=== PATIENT | male | born 1960 | race Caucasian/White ===

== ENCOUNTER 2018-09-03 06:46 | Day surgery (SDC) ==
[2018-09-03] MEDS ORDERED: LIDOCAINE 1% 20 ML MDV ID ONE (07:15)
[2018-09-03 07:22] VITALS: TEMP 97
[2018-09-03] MEDS ORDERED: VERSED ONE (08:05)
[2018-09-03] MEDS ORDERED: DIPRIVAN 20 ML VIAL IVP ONE (08:05)
--- NOTE | 2018-09-03 14:34 | OP ---
INDICATIONS FOR PROCEDURE: 57 year old gentleman presents for a screening exam. He has a family history of colon cancer involving his father in the 50's. The patient has a remote history of colon polyps. Unknown histology. His last colonoscopy was 5 years ago and unremarkable. MEDICATIONS: SEE ANESTHESIA NOTES. PROCEDURE: COLONOSCOPY. REPORT: The risks, benefits, alternatives and limitations were discussed in detail with the patient. Informed consent was obtained. After adequate sedation was achieved, a digital rectal exam revealed good tone, no masses. The colonoscope was introduced into the rectum and advanced under direct visual guidance to the cecum. The cecum was identified by the appendiceal orifice and IC valve. I then slowly withdrew the scope in circumferential manner and examined the mucosa quite carefully. I looked on the proximal and distal sides of folds and flexure as best as possible. I was able to retroflex the scope in the right colon and the left colon to increase visualization. The colonic mucosa was unremarkable in it's entire length including on retroflex view of the anal canal. The prep was good. The withdraw time was 8 minutes and 38 seconds. The patient tolerated the procedure well with stable vital signs and pulse oximetry throughout. IMPRESSION: 1. Normal exam RECOMMENDATIONS: 1. High fiber diet 2. Office visit as needed 3. Colonoscopy examination again in 5 years or sooner if there is any signs or symptoms to indicate otherwise CC: Dr. Reji PHIPPS
[2018-09-04 08:06] VITALS: BP 132/68
== END 2018-09-03 09:00 | disposition home or self-care (01) ==
LOC: SURG 06:46
PROVIDERS: ATTEND Internal Medicine Gastroenterology
DX: Z86.010 Personal history of colon polyps (principal); Z80.0 Family history of malignant neoplasm of digestive organs